=== PATIENT | male | born 1970 | race Hispanic/Latino ===

== ENCOUNTER 2016-12-10 07:54 | Outpatient (CLI) | payer BC ==
[2016-12-10] MEDS ORDERED: NACL 0.9% IR PRN (08:25)
[2016-12-10] MEDS ORDERED: XYLOCAINE TOPICAL 4% TP ONE ×2 (08:25→08:36)
[2016-12-10] MEDS ORDERED: NACL 0.9% 500 ML IR ONE (08:36)
== END 2016-12-10 07:55 | disposition home or self-care (01) ==
LOC: WOUND 07:54
PROVIDERS: ATTEND Podiatrist
DX: L97.821 Non-pressure chronic ulcer of other part of left lower leg limited to breakdown of skin (principal); L97.812 Non-pressure chronic ulcer of other part of right lower leg with fat layer exposed; I10 Essential (primary) hypertension; F17.200 Nicotine dependence, unspecified, uncomplicated; Z72.89 Other problems related to lifestyle
CPT/HCPCS: 11042; 87075; 87116; G0463

== ENCOUNTER 2016-12-20 08:49 | Outpatient (CLI) | payer BC ==
[2016-12-20] MEDS ORDERED: XYLOCAINE TOPICAL 4% TP ONE ×2 (09:20→17:00)
== END 2016-12-20 08:50 | disposition home or self-care (01) ==
LOC: WOUND 08:49
PROVIDERS: ATTEND Internal Medicine
DX: L97.812 Non-pressure chronic ulcer of other part of right lower leg with fat layer exposed (principal); E78.4 Other hyperlipidemia; I10 Essential (primary) hypertension; F17.200 Nicotine dependence, unspecified, uncomplicated; Z72.89 Other problems related to lifestyle

== ENCOUNTER 2016-12-27 08:47 | Outpatient (CLI) | payer BC ==
[2016-12-27] MEDS ORDERED: XYLOCAINE TOPICAL 4% TP ONE ×2 (09:00→09:03)
== END 2016-12-27 08:48 | disposition home or self-care (01) ==
LOC: WOUND 08:47
PROVIDERS: ATTEND Internal Medicine
DX: L97.812 Non-pressure chronic ulcer of other part of right lower leg with fat layer exposed (principal); E78.4 Other hyperlipidemia; I10 Essential (primary) hypertension; Z72.89 Other problems related to lifestyle

== ENCOUNTER 2017-01-03 08:48 | Outpatient (CLI) | payer BC ==
[2017-01-03] MEDS ORDERED: XYLOCAINE TOPICAL 4% TP ONE ×2 (09:07→09:11)
== END 2017-01-03 08:49 | disposition home or self-care (01) ==
LOC: WOUND 08:48
PROVIDERS: ATTEND Internal Medicine
DX: L97.822 Non-pressure chronic ulcer of other part of left lower leg with fat layer exposed (principal); I10 Essential (primary) hypertension; E78.4 Other hyperlipidemia; F17.210 Nicotine dependence, cigarettes, uncomplicated; Z72.89 Other problems related to lifestyle

== ENCOUNTER 2017-01-10 08:50 | Outpatient (CLI) | payer BC ==
[2017-01-10] MEDS ORDERED: XYLOCAINE TOPICAL 2% TP ONE (09:03)
[2017-01-10] MEDS ORDERED: XYLOCAINE TOPICAL 2% ONE (09:07)
== END 2017-01-10 08:51 | disposition home or self-care (01) ==
LOC: WOUND 08:50
PROVIDERS: ATTEND Internal Medicine
DX: L97.812 Non-pressure chronic ulcer of other part of right lower leg with fat layer exposed (principal); E78.5 Hyperlipidemia, unspecified; I10 Essential (primary) hypertension; Z72.89 Other problems related to lifestyle

== ENCOUNTER 2017-01-31 08:55 | Outpatient (CLI) | payer BC ==
[2017-01-31] MEDS ORDERED: XYLOCAINE TOPICAL 4% TP ONE ×2 (09:03→09:12)
== END 2017-01-31 08:56 | disposition home or self-care (01) ==
LOC: WOUND 08:55
PROVIDERS: ATTEND Internal Medicine
DX: L97.812 Non-pressure chronic ulcer of other part of right lower leg with fat layer exposed (principal); S81.802D Unspecified open wound, left lower leg, subsequent encounter; E78.4 Other hyperlipidemia; I10 Essential (primary) hypertension; Z72.89 Other problems related to lifestyle; X58.XXXD Exposure to other specified factors, subsequent encounter
CPT/HCPCS: 99213; G0463